=== PATIENT | male | born 1935 | race Caucasian/White ===

== ENCOUNTER 2020-08-31 13:26 | Emergency (ER) | payer MEDICARE, OTHER ==
[~2020-08-31] VITALS: Ht 177.8 cm; Wt 53.1 kg
[~2020-08-31 13:26] MED LIST: ALPRAZOLAM0.5 M2 PO; CARDURA4 MG PO; CEPHALEXIN500 M1 PO; K-BICARB99 MG PO; LORTAB 5/3251 TAB PO; MELOXICAM7.5 MG PO; OMEPRAZOLE DR20 MG PO; PRILOSEC20 M1 PO; RESTORIL15 MG PO; TRIAMTERENE AND1 TAB PO; TYLENOL W/CODEI1 TA4 PO
[2020-08-31 13:34] VITALS: BP 148/70
[2020-08-31 14:13] LABS: BASO % 0.4 % (0.0-1.0); EOS # 0.1 10*3/uL (0.0-0.4); EOS % 1.9 % (1.0-4.0); HEMATOCRIT 31.9 % (42.0-52.0); MEAN CORPUSCULAR HGB 32.9 pg (27.0-31.0); MEAN CORPUSCULAR HGB CONC 32.9 g/dl (33.0-37.0); MEAN PLATELET VOLUME 11.4 fl (9.6-12.3); MONO # 0.3 10*3/uL (0.1-1.0); MONO % 6.1 % (3.0-9.0); NEUT % 73.2 % (47.0-73.0); PLATELET COUNT AUTOMATED 120 10*3/uL (130-400); RED BLOOD COUNT 3.19 10*6/uL (4.50-5.90); RED CELL DISTRI WIDTH 15.2 % (0-14.5); WHITE BLOOD COUNT 5.4 10*3/uL (4.8-10.8)
[2020-08-31 14:32] LABS: ALBUMIN 2.9 gm/dl (3.1-4.5); ALKALINE PHOSPHATASE 125 U/L (45-117); BUN 31 mg/dl (7-24); CHLORIDE 101 mmol/L (98-107); CPK 108 U/L (39-308); CREATININE 1.24 mg/dL (0.70-1.30); POTASSIUM 4.2 mmol/L (3.5-5.1); SGOT/AST 36 IU/L (3-35); SGPT/ALT 36 U/L (12-78); SODIUM 138 mmol/L (136-145); TOTAL PROTEIN 6.7 gm/dL (6.4-8.2)
[2020-08-31 14:35] LABS: TROPONIN I < 0.015 ng/ml (<0.045)
[2020-08-31 14:55] LABS: BILIRUBIN Negative (Negative); BLOOD Negative (Negative); CLARITY Clear (Clear); COLOR Yellow (Yellow); GLUCOSE Negative (Negative); KETONE Negative (Negative); LEUKO ESTERASE Negative (Negative); NITRITE Negative (Negative); UROBILINOGEN 0.2 E.U./dl (0.0-1.0)
[2020-08-31 15:05] LABS: PH 8.5 (4.5-8.0)
[2020-08-31 15:18] LABS: BACTERIA TRACE; RBC 0-2 rbc/hpf (0-2); WBC 0-2 wbc/hpf (0-5)
[2020-08-31 16:54] VITALS: BP 142/81
--- NOTE | 2020-08-31 17:00 | NUR ---
PT C/O NEW ONSET HEADACHE, DR HILL MADE AWARE
--- NOTE | 2020-08-31 18:03 | NUR ---
PT IS GOING TO [facility] TRAUMA LEVEL 2, DR WOLF IS THE ACCEPTING. REPORT IS TO BE CALLED AT [phone]
--- NOTE | 2020-08-31 18:11 | NUR ---
[facility] CONSENT BY [facility] TO TRANSFER PT
--- NOTE | 2020-08-31 18:43 | NUR ---
[facility]E HERE TO TRANSFER PT
== END 2020-08-31 18:44 | disposition short-term general hospital (02) ==
LOC: ED 13:26 → EDHOLD 16:48 → ED 16:48
PROVIDERS: Emergency Medicine
DX: S06.300A Unspecified focal traumatic brain injury without loss of consciousness, initial encounter (principal); M25.511 Pain in right shoulder; M25.512 Pain in left shoulder; Z91.041 Radiographic dye allergy status; Z79.899 Other long term (current) drug therapy; W18.39XA Other fall on same level, initial encounter; Y93.89 Activity, other specified; Y92.89 Other specified places as the place of occurrence of the external cause; Y99.8 Other external cause status